=== PATIENT | female | born 1995 | race Caucasian/White ===

== ENCOUNTER 2025-02-02 18:00 | Emergency (ER) | payer MEDICAID | END 2025-02-02 20:32 | disposition home or self-care (01) | LOC: JP.ED 18:00 | DX: L50.9 Urticaria, unspecified (principal); E10.9 Type 1 diabetes mellitus without complications; E03.9 Hypothyroidism, unspecified; Z79.4 Long term (current) use of insulin; Z79.899 Other long term (current) drug therapy; Z79.84 Long term (current) use of oral hypoglycemic drugs | CPT/HCPCS: 99283 ==

== ENCOUNTER 2025-02-06 12:56 | Emergency (ER) | payer MEDICAID ==
[2025-02-06 14:59] LABS: APPEARANCE,URINE CLEAR (CLEAR); GLUCOSE,URINE NEGATIVE (NEGATIVE); OCCULT BLOOD,URINE NEGATIVE (NEGATIVE)
[2025-02-06 15:10] LABS: SQUAMOUS EPITHELIAL CELLS,UR FEW /HPF; UROTHELIAL CELLS,URINE NOT SEEN /HPF
[2025-02-06 15:24] LABS: BASOPHILS ABSOLUTE AUTO 0.03 K/uL (0.00-0.10); BASOPHILS PERCENT AUTO 0.5 % (0.1-1.3); EOSINOPHILS ABSOLUTE AUTO 0.12 K/uL (0.00-0.40); EOSINOPHILS PERCENT AUTO 1.8 % (0.0-5.4); IMMATURE GRAN PERCENT AUTO 0.2 % (0.0-0.7); LYMPHOCYTES ABSOLUTE AUTO 1.85 K/uL (0.8-3.3); LYMPHOCYTES PERCENT AUTO 28.1 % (11.4-47.7); MONOCYTES ABSOLUTE AUTO 0.39 K/uL (0.20-0.90); MONOCYTES PERCENT AUTO 5.9 % (3.3-12.6); NEUTROPHILS ABSOLUTE AUTO 4.19 K/uL (1.0-7.6); NEUTROPHILS PERCENT AUTO 63.5 % (40.0-78.1); PLATELET COUNT,PLT 392 K/uL (130-375); RED BLOOD CELL COUNT 4.23 M/uL (3.77-5.24); WHITE BLOOD CELL COUNT,WBC 6.6 K/uL (3.2-11.0)
[2025-02-06 15:25] LABS: IMMATURE GRAN ABSOLUTE AUTO 0.01 K/uL (0.00-0.23)
[2025-02-06 15:46] LABS: ALANINE AMINOTRANSFERASE,ALT 32 U/L (12-78); ASPARTATE AMNIOTRANSFERASE,AST 17 U/L (15-37); BILIRUBIN TOTAL 0.3 mg/dL (0.2-1.0); BLOOD UREA NITROGEN,BUN 15 mg/dL (7-18); CARBON DIOXIDE,CO2 31 mmol/L (21-32); CHLORIDE,CL 107 mmol/L (100-108); CREATININE 0.7 mg/dL (0.6-1.0); EST CRCL DRUG DOSING (CG) 95.10 mL/min; ESTIMATED GFR 120 mL/min (>60); GLUCOSE RANDOM 131 mg/dL (74-106); POTASSIUM,K 3.8 mmol/L (3.6-5.2); PROTEIN TOTAL,TP 7.4 g/dL (6.4-8.2); SODIUM,NA 143 mmol/L (140-148)
[2025-02-06 15:47] LABS: A/G RATIO 1.0 (1.2-2.2)
== END 2025-02-06 16:26 | disposition home or self-care (01) ==
LOC: JP.ED 12:56
DX: R10.9 Unspecified abdominal pain (principal); E10.9 Type 1 diabetes mellitus without complications; E03.9 Hypothyroidism, unspecified; Z79.4 Long term (current) use of insulin; Z79.84 Long term (current) use of oral hypoglycemic drugs; Z79.890 Hormone replacement therapy; Z79.899 Other long term (current) drug therapy
CPT/HCPCS: 36415; 80053; 81001; 81025; 83690; 85025; 99284

== ENCOUNTER 2025-03-22 00:43 | Emergency (ER) | payer MEDICAID ==
[2025-03-22] MEDS: Bacitracin Oint 1 GM U/D Packet TOP ONE (01:14)
== END 2025-03-22 01:19 | disposition home or self-care (01) ==
LOC: JP.ED 00:43
DX: T23.222A Burn of second degree of single left finger (nail) except thumb, initial encounter (principal); E03.9 Hypothyroidism, unspecified; E11.9 Type 2 diabetes mellitus without complications; Z79.4 Long term (current) use of insulin; Z79.890 Hormone replacement therapy; Z79.899 Other long term (current) drug therapy; Z79.84 Long term (current) use of oral hypoglycemic drugs; T31.0 Burns involving less than 10% of body surface; X11.0XXA Contact with hot water in bath or tub, initial encounter
CPT/HCPCS: 16020; 99283; A9270

== ENCOUNTER 2025-04-23 12:11 | Emergency (ER) | payer MEDICAID ==
[2025-04-23 12:59] LABS: APPEARANCE,URINE SLIGHTLY CLOUDY (CLEAR); GLUCOSE,URINE 250 mg/dL (NEGATIVE); OCCULT BLOOD,URINE NEGATIVE (NEGATIVE)
[2025-04-23] MEDS ORDERED: Naloxone 0.4 MG/ML SDV IVPUSH PRN (13:08)
[2025-04-23 13:26] LABS: BASOPHILS ABSOLUTE AUTO 0.05 K/uL (0.00-0.10); BASOPHILS PERCENT AUTO 0.6 % (0.1-1.3); EOSINOPHILS ABSOLUTE AUTO 0.11 K/uL (0.00-0.40); EOSINOPHILS PERCENT AUTO 1.3 % (0.0-5.4); IMMATURE GRAN ABSOLUTE AUTO 0.03 K/uL (0.00-0.23); IMMATURE GRAN PERCENT AUTO 0.4 % (0.0-0.7); LYMPHOCYTES ABSOLUTE AUTO 1.86 K/uL (0.8-3.3); LYMPHOCYTES PERCENT AUTO 22.6 % (11.4-47.7); MONOCYTES ABSOLUTE AUTO 0.38 K/uL (0.20-0.90); MONOCYTES PERCENT AUTO 4.6 % (3.3-12.6); NEUTROPHILS ABSOLUTE AUTO 5.80 K/uL (1.0-7.6); NEUTROPHILS PERCENT AUTO 70.5 % (40.0-78.1); PLATELET COUNT,PLT 395 K/uL (130-375); RED BLOOD CELL COUNT 3.93 M/uL (3.77-5.24); WHITE BLOOD CELL COUNT,WBC 8.2 K/uL (3.2-11.0)
[2025-04-23] MEDS: Ondansetron 4 MG/2 ML SDV IVPUSH ONE (13:44)
[2025-04-23] MEDS: Sodium Chloride 0.9% 10 ML Syringe FLUSH ONE (14:21)
[2025-04-23] MEDS: Iopamidol 612 MG/ML 100 ML Bottle IV PRN (14:21)
== END 2025-04-23 17:27 | disposition home or self-care (01) ==
LOC: JP.ED 12:11
DX: K80.50 Calculus of bile duct without cholangitis or cholecystitis without obstruction (principal); E10.9 Type 1 diabetes mellitus without complications; E03.9 Hypothyroidism, unspecified; Z79.890 Hormone replacement therapy; Z79.4 Long term (current) use of insulin; Z79.899 Other long term (current) drug therapy
CPT/HCPCS: 36415; 74177; 81003; 81025; 83605; 83690; 83735; 85025; 86140; 96361; 96374; 96375; 99284; J1171; J2405; J7030; Q9967

== ENCOUNTER 2025-04-30 06:44 | Day surgery (SDC) | payer MEDICAID ==
[2025-04-30] MEDS ORDERED: Ondansetron 4 MG/2 ML SDV ONE (06:52)
[2025-04-30] MEDS ORDERED: Propofol 200 MG/20 ML SDV ONE (06:52)
[2025-04-30] MEDS ORDERED: Glycopyrrolate 0.2 MG/ML 5 ML MDV ONE (06:52)
[2025-04-30] MEDS ORDERED: Succinylcholine 200 MG/10 ML MDV ONE (06:52)
[2025-04-30] MEDS ORDERED: Dexamethasone 4 MG/ML SDV ONE (06:52)
[2025-04-30] MEDS ORDERED: fentaNYL 250 MCG/5 ML SDV ONE (06:55)
[2025-04-30] MEDS ORDERED: Lactated Ringers 1,000 ML IV SCH (07:00)
[2025-04-30] MEDS: Indocyanine Green 25 MG SDV IV SCH (07:16)
[2025-04-30] MEDS: metroNIDAZOLE/Normal Saline 500 MG in Premix Bag 1 BAG IV ONE (07:33)
[2025-04-30 07:50] LABS: BLOOD UREA NITROGEN,BUN 17.0 mg/dL (7-18); CARBON DIOXIDE,CO2 29.0 mmol/L (21-32); CHLORIDE,CL 105.0 mmol/L (100-108); CREATININE 0.8 mg/dL (0.6-1.0); EST CRCL DRUG DOSING (CG) 112.2 mL/min; ESTIMATED GFR 102.0 mL/min (>60); GLUCOSE RANDOM 83.0 mg/dL (74-106); POTASSIUM,K 3.8 mmol/L (3.6-5.2); SODIUM,NA 142.0 mmol/L (140-148)
[2025-04-30] MEDS ORDERED: fentaNYL 100 MCG/2 ML SDV ONE (08:06)
[2025-04-30] MEDS ORDERED: Ketorolac 30 MG/ML SDV ONE (08:09)
[2025-04-30] MEDS ORDERED: Acetaminophen/HYDROcodone 325-5 MG Tab PO PRN (10:12)
[2025-04-30] MEDS: Acetaminophen/HYDROcodone 325-5 MG Tab PO PRN (12:30)
== END 2025-04-30 15:20 | disposition home or self-care (01) ==
LOC: JP.SDS 06:44
PROVIDERS: ATTEND Surgery
DX: K80.10 Calculus of gallbladder with chronic cholecystitis without obstruction (principal); E10.9 Type 1 diabetes mellitus without complications; E03.9 Hypothyroidism, unspecified; Z79.899 Other long term (current) drug therapy
CPT/HCPCS: 00790; 36415; 47563; 80048; 81025; 82947; A9270; J0169; J0330; J0665; J0690; J1100; J1596; J1836; J1885; J2405; J2704; J2710; J2795; J3010; J7030; J1171; J3490

== ENCOUNTER 2025-05-03 02:23 | Emergency (ER) | payer MEDICAID ==
[2025-05-03] MEDS ORDERED: Sodium Chloride 0.9% 10 ML Syringe FLUSH PRN (02:56)
[2025-05-03 03:07] LABS: BASOPHILS ABSOLUTE AUTO 0.06 K/uL (0.00-0.10); BASOPHILS PERCENT AUTO 0.6 % (0.1-1.3); EOSINOPHILS ABSOLUTE AUTO 0.20 K/uL (0.00-0.40); EOSINOPHILS PERCENT AUTO 1.9 % (0.0-5.4); IMMATURE GRAN ABSOLUTE AUTO 0.03 K/uL (0.00-0.23); IMMATURE GRAN PERCENT AUTO 0.3 % (0.0-0.7); LYMPHOCYTES ABSOLUTE AUTO 2.63 K/uL (0.8-3.3); LYMPHOCYTES PERCENT AUTO 25.6 % (11.4-47.7); MONOCYTES ABSOLUTE AUTO 0.51 K/uL (0.20-0.90); MONOCYTES PERCENT AUTO 5.0 % (3.3-12.6); NEUTROPHILS ABSOLUTE AUTO 6.83 K/uL (1.0-7.6); NEUTROPHILS PERCENT AUTO 66.6 % (40.0-78.1); PLATELET COUNT,PLT 411 K/uL (130-375); RED BLOOD CELL COUNT 3.68 M/uL (3.77-5.24); WHITE BLOOD CELL COUNT,WBC 10.3 K/uL (3.2-11.0)
[2025-05-03 03:25] LABS: A/G RATIO 0.9 (1.2-2.2); ALANINE AMINOTRANSFERASE,ALT 41 U/L (12-78); ASPARTATE AMNIOTRANSFERASE,AST 24 U/L (15-37); BILIRUBIN TOTAL 0.2 mg/dL (0.2-1.0); BLOOD UREA NITROGEN,BUN 15 mg/dL (7-18); CARBON DIOXIDE,CO2 30 mmol/L (21-32); CHLORIDE,CL 105 mmol/L (100-108); CREATININE 0.8 mg/dL (0.6-1.0); EST CRCL DRUG DOSING (CG) 108.44 mL/min; ESTIMATED GFR 102 mL/min (>60); GLUCOSE RANDOM 182 mg/dL (74-106); POTASSIUM,K 4.0 mmol/L (3.6-5.2); PROTEIN TOTAL,TP 6.8 g/dL (6.4-8.2); SODIUM,NA 141 mmol/L (140-148)
[2025-05-03] MEDS: diphenhydrAMINE 50 MG/ML SDV IVPUSH ONE ×2 (04:00→04:01)
[2025-05-03] MEDS: Sodium Chloride 0.9% 10 ML Syringe FLUSH PRN (04:30)
[2025-05-03] MEDS: Iopamidol 612 MG/ML 100 ML Bottle IV SCH (04:30)
== END 2025-05-03 05:04 | disposition home or self-care (01) ==
LOC: JP.ED 02:23
DX: G89.18 Other acute postprocedural pain (principal); R10.12 Left upper quadrant pain; E10.9 Type 1 diabetes mellitus without complications; E03.9 Hypothyroidism, unspecified; Z79.899 Other long term (current) drug therapy; Z79.4 Long term (current) use of insulin; Z79.890 Hormone replacement therapy; Z91.013 Allergy to seafood; Z91.041 Radiographic dye allergy status
CPT/HCPCS: 36415; 74018; 74177; 80053; 83605; 83690; 85025; 96374; 96375; 99284; J1171; J1200; J7030; Q9967